=== PATIENT | male | born 1970 | race Caucasian/White ===

== ENCOUNTER 2018-09-25 18:10 | Emergency (ER) | payer SELFPAY ==
[~2018-09-25] VITALS: Ht 180.3 cm; Wt 77.1 kg
[2018-09-25 18:15] VITALS: BP 135/76
--- NOTE | 2018-09-25 18:25 | NUR ---
PATIENT LEFT WITHOUT BEING SEEN BY DR. TOTH. NO FURTHER CARE PROVIDED FOR PATIENT.
--- NOTE | 2018-09-25 18:25 | NUR ---
PATIENT EXPRESSED DESIRE TO WAIT INSIDE ED. PT EDUCATED THAT PT IS STABLE TO WAIT IN LOBBY.
== END 2018-09-25 18:25 | disposition left against medical advice (07) ==
LOC: MED 18:10
DX: T68.XXXA Hypothermia, initial encounter (principal); Z53.21 Procedure and treatment not carried out due to patient leaving prior to being seen by health care provider; W93.8XXA Exposure to other excessive cold of man-made origin, initial encounter